=== PATIENT | male | born 1950 | race Caucasian/White ===

== ENCOUNTER → 2017-05-15 | Outpatient (CLI) | payer OTHER ==
--- NOTE | ~2017-05-15 | EXE ---
[facility] [place] [employer] [address] STRESS ECHOCARDIOGRAM Name: GÓMEZ VELASQUEZ [id number] Admission: 05/15/17 Attend Phys: Alex Mike Discharge: Date of : 54 Date of Service: 05/15/17 1414 Report #: [id number] THIS REPORT FOR: //name// APPROVED REPORT Exam: Stress Echocardiogram Patient Location: Out-Patient Stress Nurse: Enmanuel Quach RN Status: routine Ht: 5 ft 8 in HR: 71 bpm BP: 124/83 mmHg Rhythm: NSR Medical History Medical History: HTN, HLP, PVD Allergies: No known drug allergies Procedure The patient underwent an Exercise Stress Test using the Eliseo Protocol. Blood pressure, heart rate, and EKG were monitored. An Echocardiogram was performed by distribution field technician in four stages in quad fashion. At peak stress, four selected images were obtained and placed side by side with resting images for comparison. Stress Test Details Stress Test: Exercise stress testing was performed using a Eliseo protocol. HR Resting HR: 68 bpm Max Heart Rate (APMHR): 156 bpm Max HR Achieved: 157 bpm Target HR (85% APMHR): 132 bpm % of APMHR: 100 Recovery HR: 85 bpm HR response to stress: Normal HR response to stress BP Resting BP: 124/83 mmHg Max BP: 152/88 mmHg Recovery BP: 122/78 mmHg ECG Resting ECG: Sinus Rhythm, ST-T abnormalities that are depressions Stress ECG: Sinus Tachycardia Recovery ECG: Sinus Rhythm with ST/T wave [facility] [address] [address] STRESS ECHOCARDIOGRAM Name: GÓMEZ VELASQUEZ Room #: REG CL [facility]#: [id number] Admission: 05/15/17 Attend Phys: Alex Mike Discharge: Date of : 54 Date of Service: 05/15/17 1414 Report #: [id number] Clinical Reason for Termination: Moderate fatigue Stress Symptoms: Dyspnea Exercise duration: 7 min 11 sec Highest Stage Achieved: Stage 4: 4.2 mph at 16% grade. Exercise capacity: 13.4 METs Stress ECG Conclusion 1. SUBJECTIVELY NEGATIVE FOR ISCHEMIA 2. ELECTROCARDIOGRAPHICALLY ABNORMAL BUT THE PRESENCE OF ST DEPRESSION AT BASELINE RENDER SHIFTS STRICTLY NOT INTERPRETABLE 3. AVERAGE FUNCTIONAL CAPACITY Pre-Stress Echo The resting Echocardiogram showed normal left ventricular contractility with an estimated Ejection Fraction of about 55-60%. Mild MR, trace AI, mild TR Post-Stress Echo The stress Echocardiogram showed normal left ventricular contractility with an estimated Ejection Fraction of about 65%. Normal augmentation of wall motion in all segments on post stress images. Clinical No clinical or ECG evidence for ischemia. Conclusion Clinical Response: Non-ischemic Exercise Capacity: Average Stress ECG Response: Indeterminant Stress Echo Images: Non-ischemic 1. LOW RISK STUDY Other Information Study Quality: Adequate <Conclusion> 1. LOW RISK STUDY <ELECTRONICALLY SIGNED> By: Alex Jiménez MD 05/15/17 1414 1414 1414 Alex Jiménez MD /INF
== END ==
LOC: CV 08:17
DX: I25.10 Atherosclerotic heart disease of native coronary artery without angina pectoris (principal)

== ENCOUNTER → 2020-06-22 | Outpatient (CLI) | payer OTHER | LOC: SJCVC 15:44 | PROVIDERS: ATTEND Internal Medicine Cardiovascular Disease | DX: Z01.810 Encounter for preprocedural cardiovascular examination (principal); I45.10 Unspecified right bundle-branch block; R93.1 Abnormal findings on diagnostic imaging of heart and coronary circulation; I25.10 Atherosclerotic heart disease of native coronary artery without angina pectoris; E78.5 Hyperlipidemia, unspecified; E03.9 Hypothyroidism, unspecified; Z79.82 Long term (current) use of aspirin; Z79.899 Other long term (current) drug therapy; Z87.891 Personal history of nicotine dependence ==

== ENCOUNTER → 2020-06-27 | Outpatient (CLI) | payer OTHER | LOC: SJCVCIMAG 08:17 | PROVIDERS: ATTEND Internal Medicine | DX: Z01.818 Encounter for other preprocedural examination (principal); I45.10 Unspecified right bundle-branch block; I49.1 Atrial premature depolarization; I25.10 Atherosclerotic heart disease of native coronary artery without angina pectoris; Z79.899 Other long term (current) drug therapy; Z87.891 Personal history of nicotine dependence ==

== ENCOUNTER 2020-07-06 07:57 | Observation (INO) | payer OTHER ==
[~2020-07-06] VITALS: Ht 175.3 cm; Wt 75.4 kg
[2020-07-06 08:40] VITALS: BP 117/83
[2020-07-06 08:54] LABS: HEMATOCRIT 42.7 % (42.0-52.0); HEMOGLOBIN 14.1 gm/dL (14.0-18.0); MCH 36.4 pg (26.0-34.0); MCHC 33.1 g/dL (28.0-37.0); MCV 110.2 fL (80.0-100.0); RBC 3.87 mil/uL (4.50-6.00); RDW 13.2 % (10.5-14.5); WBC 6.1 thou/uL (4.0-11.0)
[2020-07-06] MEDS ORDERED: ASA81BEC PO (08:57)
[2020-07-06] MEDS ORDERED: ACYCLOVIR 400400 MG PO (08:57)
[2020-07-06] MEDS ORDERED: ALLEGRA ALLERGY60 MG PO (08:58)
[2020-07-06] MEDS ORDERED: CALCIUM CARBON500 MG PO (08:58)
[2020-07-06] MEDS ORDERED: SIMVASTATIN80 MG PO (08:59)
[2020-07-06] MEDS ORDERED: LEVO-T100 MCG PO (08:59)
[2020-07-06] MEDS ORDERED: FLOMAX0.4 MG PO (09:00)
[2020-07-06] MEDS ORDERED: ZANAFLEX4 M1 PO (09:01)
--- NOTE | 2020-07-06 09:01 | EKG ---
[facility] [place] [address] ELECTROCARDIOGRAM REPORT Name: GÓMEZ VELASQUEZ Room #: REG [facility]#: [id number] Admission: 07/06/20 Attend Phys: Alex Jiménez Discharge: Date of : 54 Report #: [id number] THIS REPORT FOR: cc: Liam Casey MD, Bernard O. MD Santiago, Patrick MD [facility] ~ THIS REPORT FOR: //name// [facility] Test Date: 2020-07-06 Test Time: 08:25:10 Pat Name: GÓMEZ VELASQUEZ Department: Room: Gender: Studio Hand: [facility] : 1950 Requested By: Alex Jiménez Order Number: [id number] MD: Carter Courtney Measurements Intervals [place] Rate: 61 P: 41 AK: 164 QRS: 63 QRSD: 118 T: 36 QT: 422 QTc: 425 Interpretive Statements Sinus rhythm Incomplete right bundle branch block No previous ECG available for comparison Electronically Signed On 07-06-2020 9:01:35 CDT by Carter Courtney [email or web address] <ELECTRONICALLY SIGNED> By: Carter Courtney MD, FACC 07/06/20 0901 4 4 Carter Courtney MD, [facility] /EPI
[2020-07-06 09:03] LABS: CALCIUM 9.2 mg/dL (8.5-10.1); CREATININE 0.9 mg/dL (0.7-1.3); POTASSIUM 4.1 mmol/L (3.5-5.1)
--- NOTE | 2020-07-06 19:38 | NUR ---
ASSUMED CARE OF PT AT APPROX 1830 FROM REPLENISHMENT SPECIALIST. STENTS PLACED THIS MORNING, PT WAITED FOR ROOM MOST OF DAY. PT A&OX4, R GROIN SITE CDI, WITH NO BRUISING OR HEMATOMA. SETTLED PT IN ROOM. GAVE REPORT TO NIGHT NURSE.
[2020-07-06 19:40] VITALS: BP 158/92
[2020-07-06] MEDS ORDERED: PRAMIPEXOLE0.125 MG PO (20:16)
[2020-07-07] VITALS (10 sets, daily range): BP systolic 77–125; BP diastolic 52–80
--- NOTE | 2020-07-07 02:35 | NUR ---
ASSUMED CARE OF PATIENT AT 1900. PATIENT RIGHT GROIN INCISION DRESSING C/D/I. GROIN SITE SOFT WITH NO ECCHYMOSIS OBSERVED. PATIENT HAS NO C/O PAIN. ASSESSMENTS UNREMARKABLE. PATIENT AMBULATING INDEPENDENTLY IN ROOM.
[2020-07-07] MEDS ORDERED: EFFIENT10 MG PO (07:21)
--- NOTE | 2020-07-07 17:42 | NUR ---
PT CARE ASSUMED AT 0700. ASSESSMENT CHARTED. MEDICATION CHARTED. TORREZ SHEET SIGNED. SINUS RHYTHM 1ST DEG. RW IV. HEART CATH YESTERDAY; RT GROIN; C/D/I. UP AD ANDERS. PT TO BE DISCHARGED. PAPERWORK SIGNED. TELEMETRY D/C'D. IV D/C'D.
--- NOTE | 2020-07-15 11:29 | CATHLAB ---
[facility] [address] [place] [address] INVASIVE PROCEDURE REPORT Name: GÓMEZ VELASQUEZ Room #: 205-P [facility] Cee Kinney#: [id number] Admission: 07/06/20 Attend Phys: Alex Jiménez Discharge: 07/07/20 Date of : 54 Report #: [id number] THIS REPORT FOR: cc: Liam Casey MD, Bernard O. MD Lammoglia, Francisco J. MD ~ APPROVED REPORT Study performed: 07/06/2020 09:50:11 Patient Details Patient Status: In-Patient Room #: The patient is a 70 year-old male Event Personnel Alex Jiménez Inserting Machine Operator, Ab Reinoso RN, Danita Figueroa RN RN, Virginia Bob RTR, KATHARINE Natarajan, Marilou Del Valle Monitor Procedures Performed Art Access - R femoral artery* Left Heart Cath w/or w/o Coronaries [id number] [facility] [address] Initial Mod Sed Same Phys/QHP Gr5y 403238 84558 Mod Sed Same Phys/QHP Ea 435088 Hemostasis w/ Mynx STEPHEN Place w/wo Plasty Single RCA 577410, supervision of conscious sedation Indication Positive stress test, Chest pain Procedure Narrative The Right Groin^ was infiltrated with 1% Lidocaine subcutaneous anesthesia. A PINNACLE 4FR Sheath #[id number] sheath was inserted into the RFA 4F^. Coronary angiography was performed using coronary diagnostic catheters. The right coronary system was accessed and visualized with a JR4 catheter. The left coronary system was accessed and visualized with a JL4 catheter. There was no hematoma. Intraoperative Conscious Sedation Sedation start time: 1033 Case end Time: 1126 Versed 2 mg Fluoro Time: 7.10 minutes [facility] [place] [address] INVASIVE PROCEDURE REPORT Name: GÓMEZ VELASQUEZ Room #: 205-P [facility]#: [id number] Admission: 07/06/20 Attend Phys: Alex Mike Discharge: 07/07/20 Date of : 54 Report #: [id number] Dose: DAP 6603.50 cGycm2 1051 mGy Contrast Type and Amount: Omnipaque 105 ml Coronary Angiography The patient's coronary anatomy is right dominant. Diagnostic Cath Left Main Normal origin and caliber bifurcates into LAD and LCx. Mild luminal irregularities without significant flow liomiting lesions LAD Moderate caliber type III which courses in the anterior interventricular sulcus giving rise to septal diagonal branches. In its proximal course is mild irregularities less than 30% noted. It is quite tortuous in its course with what appears to be mild plaquing at the bends. It tapers in its course Hoxsie apex and terminates a small bifurcating vessel in the posterior left-ventricular region the vessel arises in the proximal portion of the LAD but courses along the distribution of the circumflex on the lateral aspect of the heart. This is free of high-grade disease Diagonal 1 Small caliber vessel without significant high-grade lesion coursing along the anterolateral wall of the ventral Circumflex Small to moderate caliber nondominant vessel giving rise to a bifurcating marginal branch. And continues and terminates a small caliber vessel in the posterior ventricular region. Only mild luminal irregularities are noted no high-grade lesions of prior OM1 Small to moderate caliber bifurcating vessel without significant high-grade lesions noted Right Coronary Large-caliber dominant vessel normal origin proceeds in his proximal fourth is an eccentric high-grade lesion of greater than 90%. The vessel continues on in the AV groove giving rise to ventricular and right atrial branches approaches the crux of the heart where it gives rise to posterior descending artery. Then terminates a small caliber vessel beyond the crux of the heart. R PDA Moderate caliber vessel without significant high-grade lesion as it courses in the posterior interventricular sulcus towards the apex Ramus Previously described early branch arising in the LAD appears to course along a ramus intermedius region but it is free of high-grade disease Left Ventriculography Left Ventriculography was not performed. Hemodynamics The aortic pressure is 141/66 mmHg with a mean of 99 mmHg. The left [facility] [address] [place] [address] INVASIVE PROCEDURE REPORT Name: RONGÓMEZ Ismael Room #: 205-P [facility] M.R.#: [id number] Admission: 07/06/20 Attend Phys: Alex Mike Discharge: 07/07/20 Date of : 54 Report #: [id number] ventricular pressure is 121/3 mmHg with a mean of mmHg. The left ventricular end diastolic pressure is 24 mmHg. PCI Technique It was determined the right coronary lesion was significant and required intervention. In view of this the 6 4 Indonesian system was exchanged for 6 with 6 cm in a standard Jacob left 4 guide was engaged to the right coronary ostium. A 0.014 wire was then utilized in position to the distal posterior descending artery. A drug-eluting stent is noted in the prolonged was then primarily deployed without complications. Expansion of the one quarter size upwards was noted with flaring of the proximal third. Subsequent to this imaging was performed with normal flow no loss of side branch and subluxation intraluminal thrombus noted. There was a moderate 50% lesion towards the distal part of the proximal RCA which was not intervened due to the absence of hemodynamic significance. Patient tired procedure well having no complication PCI Technique Lesion Percutaneous coronary intervention was performed on the proximal right coronary artery. A LAUNCHER 6FR JR 4 #[id number] Guide Catheter was used to engage the ostium. A Luge Wire .014 x 182CM #[id number] Interventional Guidewire was used to cross the lesion. STENT DEPLOYMENT A stent RESOLUTE TRAVIS RX 3.0 X 12 #[id number] was inserted and inflated up to 14.00atm for 25seconds. Additional Inflation: 18.00atm for 15seconds. Conclusion 1. Coronary disease severe single-vessel consisting of proximal right coronary 2. Successful percutaneous revascularization with STEPHEN stenting of the proximal RCA 3. Normal hemodynamics Recommendations Cardiac Risk Reduction Program Medical Therapy Aggressive dual antiplatelet therapy is initiated <ELECTRONICALLY SIGNED> By: Alex Jiménez MD 07/15/20 1128 27 Alex Jiménez MD /INF
== END 2020-07-07 17:44 | disposition home or self-care (01) ==
LOC: CATH 07:57 → 2N 18:26
PROVIDERS: ADMIT Internal Medicine; ATTEND Internal Medicine
DX: I25.10 Atherosclerotic heart disease of native coronary artery without angina pectoris (principal); E03.9 Hypothyroidism, unspecified; E78.5 Hyperlipidemia, unspecified; Z79.82 Long term (current) use of aspirin; Z79.899 Other long term (current) drug therapy

== ENCOUNTER → 2020-07-11 | Outpatient (CLI) | payer OTHER ==
[~2020-07-11] MED LIST: ACYCLOVIR 400400 MG PO; ALLEGRA ALLERGY60 MG PO; ASA81BEC PO; CALCIUM CARBON500 MG PO; EFFIENT10 MG PO; FLOMAX0.4 MG PO; LEVO-T100 MCG PO; PRAMIPEXOLE0.125 MG PO; SIMVASTATIN80 MG PO; ZANAFLEX4 M1 PO
== END ==
LOC: SJCVCIMAG 09:21
PROVIDERS: ATTEND Internal Medicine
DX: R19.09 Other intra-abdominal and pelvic swelling, mass and lump (principal); G89.18 Other acute postprocedural pain; M79.81 Nontraumatic hematoma of soft tissue; I25.10 Atherosclerotic heart disease of native coronary artery without angina pectoris; Z79.899 Other long term (current) drug therapy; Z87.891 Personal history of nicotine dependence

== ENCOUNTER → 2020-07-28 | Outpatient (CLI) | payer OTHER | LOC: SJCVC 14:28 | PROVIDERS: ATTEND Internal Medicine | DX: I25.10 Atherosclerotic heart disease of native coronary artery without angina pectoris (principal); E78.5 Hyperlipidemia, unspecified; C18.9 Malignant neoplasm of colon, unspecified; R19.09 Other intra-abdominal and pelvic swelling, mass and lump ==

== ENCOUNTER → 2021-08-02 | Outpatient (CLI) | payer OTHER | LOC: SJCVCIMAG 09:14 | PROVIDERS: ATTEND Internal Medicine | DX: I49.1 Atrial premature depolarization (principal); R42 Dizziness and giddiness; R07.9 Chest pain, unspecified; D64.9 Anemia, unspecified; R53.83 Other fatigue; R06.00 Dyspnea, unspecified; R53.1 Weakness ==

== ENCOUNTER 2021-08-17 09:29 | Observation (INO) | payer OTHER ==
[2021-08-17] VITALS (8 sets, daily range): BP systolic 119–135; BP diastolic 60–71
[~2021-08-17] VITALS: Ht 172.7 cm; Wt 63.5 kg
[2021-08-17 10:50] LABS: HEMATOCRIT 27.4 % (42.0-52.0); HEMOGLOBIN 8.4 gm/dL (14.0-18.0); MCH 25.9 pg (26.0-34.0); MCHC 30.6 g/dL (28.0-37.0); MCV 84.6 fL (80.0-100.0); RBC 3.24 mil/uL (4.50-6.00); RDW 19.2 % (10.5-14.5); WBC 4.7 thou/uL (4.0-11.0)
[2021-08-17 10:53] LABS: CALCIUM 8.8 mg/dL (8.5-10.1); POTASSIUM 4.2 mmol/L (3.5-5.1)
--- NOTE | 2021-08-17 12:54 | EKG ---
[address] [place] [address] ELECTROCARDIOGRAM REPORT Name: GÓMEZ VELASQUEZ [id number] Admission: 08/17/21 Attend Phys: Alex Jiménez Discharge: Date of : 54 Report #: [id number] [facility] Test Date: 2021-08-17 Test Time: 11:08:52 Pat Name: GÓMEZ VELASQUEZ Department: Room: Gender: M Information Systems Security Analyst: FSCHWALBE : 1950 Requested By: Alex Jiménez Order Number: [id number] MD: Carter Courtney Measurements Intervals [place] Rate: 59 P: 67 UT: 167 QRS: 61 QRSD: 115 T: 41 QT: 435 QTc: 431 Interpretive Statements Sinus rhythm Nonspecific intraventricular conduction delay Compared to ECG 07/06/2020 08:25:10 Intraventricular conduction delay now present Incomplete right bundle-branch block no longer present Electronically Signed On 08-17-2021 12:54:23 BEHAVIORAL HEALTH SPECIALIST by Carter Courtney [email or web address] <ELECTRONICALLY SIGNED> By: Carter Courtney MD, [facility] 08/17/21 1254 D: 11/1107 07 Carter Courtney MD, FACC /EPI
--- NOTE | 2021-08-17 15:49 | NUR ---
ORIENTED TO ROOM AND UNIT, BED LOW AND LOCKED, SIDE RAILS UPX3, CALL LIGHT IN REACH. RIGHT GROIN CDI WITH NO HEMATOMA.
--- NOTE | 2021-08-17 19:19 | NUR ---
ASSESS RIGHT GROIN WITH ROHAN MCCLAIN. RIGHT GROIN REMAIN CDI WITH NO HEMATOMA.
--- NOTE | 2021-08-17 21:28 | NUR ---
ASSUMED PT CARE AT 1900. ALERT AND ORIENTEDX4, SR ON TELE, DENIES PAIN OR SOB, R. GROIN SITE CDI. NO HEMATOMA, OFF BEDREST AT 2029, AMBULATED IN THE HALLWAYX1, NO BLEEDING OR HEMATOMA NOTED FROM THE GROIN SITE, IV DISCONTINUED TO THE R.FOREARM, PRESSURE APLLIED, PT DISCHARGED AT 2114 WITH SISTER, ALL DISCHARGE MEDS AND INSTRUCTIONS GIVEN TO PT, NO CONCERNS VOICED
--- NOTE | 2021-08-27 15:28 | CATHLAB ---
[facility] [place] [address] INVASIVE PROCEDURE REPORT Name: GÓMEZ VELASQUEZ Room #: 200-I [facility] Cee Kinney#: [id number] Admission: 08/17/21 Attend Phys: Alex Jiménez Discharge: 08/17/21 Date of : 54 Report #: [id number] THIS REPORT FOR: cc: Elias Davison Michael DO Lammoglia, Francisco J. MD ~ APPROVED REPORT Study performed: 08/17/2021 13:16:13 Patient Details Patient Status: Out-Patient Room #: The patient is a 71 year-old male Event Personnel Alex Jiménez Assembler Motor Vehicle, Danita Figueroa RN RN, Brenda Rangel RTR Scrub, tSar Dominguez RTR Monitor Procedures Performed Art Access - R femoral artery* Left Heart Cath w/or w/o Coronaries [id number] LHC FFR 9925660 FFR Hemostasis with Manual pressure 65576 Initial Mod Sed Same Phys/QHP Gr5y 300650 65187 Mod Sed Same Phys/QHP Ea 523398, supervision conscious sedation Indication Positive stress test, Chest pain Procedure Narrative The Right Groin^ was infiltrated with 1% Lidocaine subcutaneous anesthesia. A PINNACLE 4FR Sheath #[id number] sheath was inserted into the RFA^. Coronary angiography was performed using coronary diagnostic catheters. The right coronary system was accessed and visualized with a JR4 catheter. The left coronary system was accessed and visualized with a JL4 catheter. The left ventricle was accessed and visualized with a PIGTAIL catheter. Left ventricular/Aortic Valve gradient assessed via catheter pullback. Left ventriculogram was performed in 30 degree projection. Hemostasis was obtained with manual pressure following sheath removal without any complications. The patient tolerated the procedure well and there were no complications associated with the procedure. There was no hematoma. Intraoperative Conscious Sedation [facility] [address] [place] [address] INVASIVE PROCEDURE REPORT Name: GÓMEZ VELASQUEZ Room #: 200-I [facility].#: [id number] Admission: 08/17/21 Attend Phys: Alex Mike Discharge: 08/17/21 Date of : 54 Report #: [id number] Sedation start time: 13:46 Case end Time: 14:29 Versed 2 mg Fluoro Time: 3.50 minutes Dose: DAP 2845.10 cGycm2 465 mGy Contrast Type and Amount: Omnipaque 45 ml Coronary Angiography The patient's coronary anatomy is right dominant. Diagnostic Cath Left Main Left main is moderate to large caliber almost nonexistent vessel with an early bifurcates into left anterior single left circumflex LAD Moderate to large caliber type 3 vessel which courses in the interventricular sulcus. Gives rise to septal diagonal branches with evidence of irregularities beyond the mid LAD towards the apex. At the bifurcation of the second diagonal branch there appears to be a narrowing of the LAD proper which is eccentric in nature. Appears to be approximately 50%. Diagonal 1 Small caliber vessel without significant high-grade lesions noted Diagonal 2 Moderate caliber vessel tortuous in its course towards the lateral anterior wall without significant stenosis but terminating as a bifurcating vessel Diagonal 3 Small caliber vessel without significant lesion Circumflex Moderate caliber vessel which rapidly tapers at the origin of first marginal branch. There is irregularities of less than 50% proximal to this tapering and beyond that the vessel continues as a small posterior wall branch in the AV groove. First marginal branch has irregularities and lesions that appear to be less than 50%. OM1 Small to moderate caliber vessel with proximal irregularities of 50% or less noted that then continues on with irregularities as it reaches the lateral aspect left ventricle Right Coronary Large-caliber vessel normal origin previously stented with a patent stent. There is minimal restenosis identified. The stent is an eccentric lesion that appears to be 30% on some views in 1 view appears to be above 60%. No flow-limiting lesions identified currently. R PDA Moderate caliber vessel without significant lesions noted. Is tortuous in its course in the posterior interventricular sulcus towards the [facility] [address] [place] [address] INVASIVE PROCEDURE REPORT Name: GÓMEZ VELASQUEZ Room #: 200-I [facility] IN M.R.#: [id number] Admission: 08/17/21 Attend Phys: Alex Mike Discharge: 08/17/21 Date of : 54 Report #: [id number] Left Ventriculography Left Ventriculography was not performed. IVUS Fractional Flow [place] was performed on the mid right coronary artery vessel. A 6FR JR4 Guide Catheter was used to engage the RCA ostium. IVUS Findings PRE-MEASUREMENT FOR FFR WAS 1.00. POST-MEASUREMENT WAS 0.98. Hemodynamics The aortic pressure is 127/65 mmHg with a mean of 92 mmHg. The left ventricular pressure is 129/3 mmHg with a mean of mmHg. The left ventricular end diastolic pressure is 15 mmHg. Pullback from the left ventricle to the aorta revealed no gradient across the aortic valve. PCI Technique In view of the centricity of the right coronary lesion. The 4 Kyrgyz system was then exchanged for a 6 Kyrgyz system in a standard JR4 guide was engaged. A IFR flow wire was then positioned distal to the lesion and which showed no significant decrease in flow with a value of 0.98. In view of this system was withdrawn and the puncture site was sealed. No complications patient tolerated procedure well PCI Technique Lesion The lesion stenosis prior to intervention was mid right coronary artery% with PAM 6FR JR4 flow. A RCA Guide Catheter was used to engage the ostium. BALLOON DILATION A Balloon catheter PRE-MEASUREMENT FOR FFR WAS 1.00. POST-MEASUREMENT WAS 0.98. was inserted and inflated up to yesika for seconds. Conclusion 1. Coronary disease previously stented right coronary artery with moderate lesion beyond and mild to moderate irregularities of the left circumflex and LAD proper 2. Normal hemodynamics 3. iFR of the right coronary lesion demonstrated no hemodynamic significance Recommendations [facility] [address] [place] [address] INVASIVE PROCEDURE REPORT Name: GÓMEZ VELASQUEZ Room #: 200-I [facility] IN M.R.#: [id number] Admission: 08/17/21 Attend Phys: Alex Mike Discharge: 08/17/21 Date of : 54 Report #: [id number] Cardiac Risk Reduction Program Medical Therapy <ELECTRONICALLY SIGNED> By: Alex Jiménez MD 08/27/21 1528 1528 1528 Alex Jiménez MD /INF
== END 2021-08-17 21:15 | disposition home or self-care (01) ==
LOC: CATH 09:29 → 2N 15:36
PROVIDERS: ADMIT Internal Medicine; ATTEND Internal Medicine
DX: I25.10 Atherosclerotic heart disease of native coronary artery without angina pectoris (principal); I10 Essential (primary) hypertension; C18.9 Malignant neoplasm of colon, unspecified; N40.0 Benign prostatic hyperplasia without lower urinary tract symptoms; E78.5 Hyperlipidemia, unspecified; E03.9 Hypothyroidism, unspecified; Z79.82 Long term (current) use of aspirin; Z79.899 Other long term (current) drug therapy; Z87.891 Personal history of nicotine dependence; Z85.828 Personal history of other malignant neoplasm of skin